=== PATIENT | male | born 1980 ===

== ENCOUNTER → 2019-08-26 09:30 | Day surgery (SDC) | payer OTHER ==
[~2019-08-26 09:30] MED LIST: Acetaminophen TAB* 325 MG PO PRN; Buffered Lidocaine 1% SYRIN* 1 ML/SYRINGE INTRADERM ONE; Dexamethasone IV* 4 MG/ML 1 ML (4 MG) IV SLOW PU ONE; Dexamethasone IV* 4 MG/ML 1 ML (4 MG) ONE; DiMENhydriNATE IV* 50 MG/ML VIAL IV PUSH PRN; HYDROmorphone INJ1* 1 MG/ML SYRINGE IV PRN; Ketorolac INJ* 30 MG/ML 1 ML VIAL IV PRN; Ketorolac INJ* 30 MG/ML 1 ML VIAL ONE; Lactated Ringers 1000 ML Bag* 1,000 ML IV SCH; Lidocaine 1% w EPI 1:100,000* MDV 20 ML VIAL ONE; Lidocaine 2% PF * 5 ML VIAL ONE; Midazolam* 1 MG/ML 2 ML VIAL (2 MG) ONE; Naloxone* 0.4 MG/ML 1 ML VIAL IV PRN; Ondansetron INJ* 2 MG/ML VIAL ONE; Propofol* 10 MG/ML 20 ML BTL ONE; ceFAZolin 2 GM in NS PREMIX(*) 2 GM/100 ML BAG IVPB ONE; fentaNYL* 50 MCG/ML 2 ML VIAL (100 MCG VIAL) IV PRN; fentaNYL* 50 MCG/ML 5 ML VIAL (250 MCG VIAL) ONE; oxyCODONE/Acetamin 5/325 MG* TAB ONE; oxyCODONE/Acetamin 5/325 MG* TAB PO PRN
[2019-08-26 14:37] VITALS: BP 126/84
--- NOTE | 2019-08-27 07:41 | OP ---
DATE OF OPERATION: 08/26/19 - [facility] DATE OF : 78 SURGEON: Leonid Gold MD. VINEGAR MAKER: DULCE MARIA Sy. A physician underwriting assistant was required for the length of procedure for assistance with patient positioning, retraction, and closure. ANESTHESIOLOGIST: Dr. Leonid Valencia. ANESTHESIA: General anesthesia and local anesthesia consisting of 5 cc of 1% lidocaine with epinephrine. PRE-OP DIAGNOSIS: Right distal biceps tendon rupture. POST-OP DIAGNOSIS: Right distal biceps tendon rupture. OPERATIVE PROCEDURE: Open repair of right distal biceps tendon. ANTIBIOTICS: Ancef 2 g IV. IV FLUIDS: See Anesthesia note. PATIENT POSITIONING: Supine on stretcher with hand table. GTME-QE-DEOF TIME: 55 minutes. TOURNIQUET TIME: 59 minutes, right upper arm tourniquet, at 250 mmHg. SPECIMEN: None. IMPLANTS: Arthrex distal biceps tendon repair set. Button x1, metal. Bioabsorbable screw, 7 x 10 mm. COMPLICATIONS: None. 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 I met the patient in clinic, referred by a colleague. I discussed nonoperative and operative treatment of the above-mentioned diagnosis. The patient opted for surgery. I discussed the risks and potential complications of surgery, including but not limited to, the very high incidence of temporary or permanent lateral antebrachial cutaneous nerve symptoms. DESCRIPTION OF PROCEDURE: In preoperative holding, the patient signed written consent. Operative extremity was marked in preoperative holding. The patient was taken back to the operating room and kept on the stretcher. The patient was sedated and intubated. A hand table was applied to the stretcher. Due to the shortness of the patient' s right upper extremity, I decided to use a sterile tourniquet. The right upper extremity was prepped and draped. A sterile tourniquet was applied to the right upper arm. Formal surgical time-out was performed. Esmarch was applied and tourniquet was elevated to 250 mmHg. I made a longitudinal incision, anterior, skin that was centered over the bicipital tuberosity. Later in the case, I measured this skin incision to be 4 cm long. I dissected through subcutaneous tissue. I carefully dissected around the superficial veins and visualized the lateral antebrachial cutaneous nerve. I did not require the use of cautery nor did I need to tie off any vessels during this case. I retracted vessels radially. I dissected into the interval between the brachioradialis and the pronator teres. I noted some significant inflammation and scarring along the pronator teres and decided to first work on freeing up the biceps tendon. Retractors were placed. Using mostly finger dissection as well as some spreading scissor dissection, I identified the biceps tendon. I placed a traction stitch and freed up adhesions that had certainly formed in the 3 weeks since his injury. I mobilized the biceps tendon nicely. The distal end of the biceps tendon was significantly diseased and I resected 1 cm or perhaps 1.5 cm of diseased tendon. I then used the FiberLoop suture to place 4 stitches in the distal biceps tendon. I loaded the biceps button and placed that to the side. I dissected down to the bicipital tuberosity. With the forearm hyper-supinated , I placed my retractors, Castaneda, about the bone. [place] was placed distally. I debrided the bicipital tuberosity with a curette and rongeur. I placed a pin bicortically. I used mini C-arm imaging to confirm excellent placement of pin. I used a 7.5 mm reamer to ream unicortically. I irrigated profusely and examined my tunnel and I liked its depth. I passed my button and flipped it. Flexing the elbow up to 30 or 40 degrees of flexion, I pulled the biceps tendon into the socket. A long length of tendon was pulled into the socket and I liked that. I next tied a stitch using an arthroscopic knot pusher. I next placed my tenodesis screw and then tied another knot with the suture per technique. I cut suture ends. Irrigation. I studied the wound. No bleeding. Closure of the subcutaneous tissue with buried simple stitches using Vicryl 3-0 suture. Closure of the subcuticular layer with a running stitch using Monocryl 3-0 suture. Mastisol and Steri-Strips, local anesthesia 5 cc placed, 4x4s and sterile Webril. I next placed a splint consisting of a posterior slab followed by a sugar-tong forearm slab and overwrapping it with an Martin bandage. The patient was awakened, extubated, and transferred to the PACU. The patient was placed in a sling. DISPOSITION: In the PACU, the patient was groggy, but I was able to get him to show that with regards to motor function, he was neurovascularly intact distally. The patient is to remain in the splint. He will follow up with me in clinic in 1 week for conversion from the splint to an elbow-hinged brace. The patient will take Percocet as needed for pain control, Keflex for infection prophylaxis, and indomethacin for heterotopic ossification prophylaxis. The patient will also start physical therapy after he is placed into the brace, with physical therapy beginning approximately 2 to 3 weeks postoperatively. [id number]/[facility] #: [id number] ALINE
== END | disposition home or self-care (01) ==
LOC: OR 09:30
PROVIDERS: ATTEND Orthopaedic Surgery
DX: S46.211A Strain of muscle, fascia and tendon of other parts of biceps, right arm, initial encounter (principal); J45.909 Unspecified asthma, uncomplicated; X50.0XXA Overexertion from strenuous movement or load, initial encounter; Y93.67 Activity, basketball; Y92.310 Basketball court as the place of occurrence of the external cause
CPT/HCPCS: 76000; A9270-GY; C1713; J0690; J1100; J1885; J2250; J2405; J2704; J3010

== ENCOUNTER 2019-11-04 07:32 | Observation (INO) | payer OTHER ==
--- OUTSIDE RECORDS SUMMARY | 2019-11-04 07:48 | XMS REPORT | Continuity of Care Document ---
:1980 External Reference #:[id number] Author Name Leonid Gold MD (transmitted by agent of provider Wagner Waters) Address [address] [place] [id number] Care Team Providers Name Role Phone Laci White NP - Family Care Team Information Education Professional [phone] Problems Active Problems Provider Date Syncope and collapse Ubaldo Solomon M.D. Onset: 08/26/2013 Strain of muscle, fascia and tendon of other Leonid Gold MD Onset: parts of biceps, right arm, subsequent encounter Social History Type Date Description Comments Sex Unknown ETOH Use Occasionally consumes 3 per week (beer, alcohol wine) Tobacco Use Start: Unknown Patient has never smoked Recreational Drug Use Denies Drug Use Smoking Status Reviewed: 10/08/19 Patient has never smoked Exercise Type/Frequency Exercises regularly 5 days a week, walking, running at work (stairs, walking) Allergies, Adverse Reactions, Alerts Description No Known Drug Allergies Medications Active Medications SIG Qnty Indications Ordering Provider Date R Elbow Hinged Brace r elbow hinged 1units S46.111D Leonid Salamanca 08/18/2019 brace- start it MD Asif locked at 90 degrees of flexion Albuterol Sulfate prn Unknown 90mcg Flovent HFA bid Unknown Fish Oil Concentrate 1 po qd Unknown Multivitamin Adult 1 by mouth every Unknown day Tablets History Medications Indomethacin 1 tab three 21caps Leonid Salamanca 08/26/2019 - 25mg times a day x 7 MD Asif 09/16/2019 Capsules days Percocet 1 by mouth 42tabs S46.111D Leonid Salamanca 08/26/2019 - 5-325mg every 4-6 hours MD Asif 09/16/2019 Tablets as needed pain Keflex take 1 tablet 15caps Leonid Salamanca 08/26/2019 - 500mg Capsules by mouth every MD Asif 09/16/2019 8 hours for 5 days Immunizations Description No Information Available Vital Signs Date Vital Result Comment 10/08/2019 1:05pm Height 68 inches 5'8" Weight 160.00 lb Heart Rate 77 /min BP Systolic 124 mmHg BP Diastolic 78 mmHg Body Temperature 97.7 F Pain Level 0 BMI (Body Mass Index) 24.3 kg/m2 09/17/2019 8:12am Height 68 inches 5'8" Weight 160.00 lb Heart Rate 70 /min BP Systolic 124 mmHg BP Diastolic 76 mmHg Respiratory Rate 12 /min Pain Level 0 BMI (Body Mass Index) 24.3 kg/m2 Results Description No Information Available Procedures Date Code Description Status 08/26/2019 27117 reinsertion ruptured biceps or triceps tendon,distal with Completed or w/o 08/26/2019 73269 reinsertion ruptured biceps or triceps tendon,distal with Completed or w/o Medical Devices Description No Information Available Encounters Type Date Location Provider Dx Diagnosis Office Visit 08/18/2019 [facility] Leonid Salamanca S46.211D Strain of 8:00a at [facility] Gold MD musc/fasc/tend prt biceps, right arm, subs Office Visit 08/10/2019 [facility] Gabrielasamantha Correia, M25.521 Pain in right 3:00p at Jamey M.DRichard elbow S46.101A Unsp injury of musc/fasc/tend long hd bicep, right arm, init Y93.67 Activity, basketball Assessments Date Code Description Provider 10/08/2019 S46.211D Strain of muscle, fascia and tendon of Leonid Gold MD other parts of biceps, right arm, subsequent encounter 09/17/2019 S46.211D Strain of muscle, fascia and tendon of Leonid Gold MD other parts of biceps, right arm, subsequent encounter 09/03/2019 S46.211A Strain of muscle, fascia and tendon of Leonid Gold MD other parts of biceps, right arm, initial encounter 08/26/2019 S46.211A Strain of muscle, fascia and tendon of Leonid Gold MD other parts of biceps, right arm, initial encounter 08/26/2019 S46.211A Strain of muscle, fascia and tendon of DULCE MARIA Sy other parts of biceps, right arm, initial encounter 08/18/2019 S46.211D Strain of muscle, fascia and tendon of Leonid Gold MD other parts of biceps, right arm, subsequent encounter 08/10/2019 M25.521 Pain in right elbow Gabriela Correia M.D. 08/10/2019 S46.101A Unspecified injury of muscle, fascia and Gabriela Correia M.D. tendon of long head of biceps, right arm, initial encounter 08/10/2019 Y93.67 Activity, basketball Gabriela Correia M.D. Plan of Treatment Future Appointment(s):11/19/2019 8:00 am - Leonid Gold MD at [facility] at Kdzmxf5910/08/2019 - Leonid Gold, MDS46.211D Strain of muscle, fascia and tendon of other parts of biceps, right arm, subsequent encounterFollow up:Follow up: 6 weeks Functional Status Description No Information Available Mental Status Description No Information Available Referrals Description No Information Available
--- OUTSIDE RECORDS SUMMARY | 2019-11-04 07:48 | XMS REPORT | Continuity of Care Document ---
:1980 External Reference #:[id number] Author Name Leonid Gold MD (transmitted by agent of provider Barbara Gordillo) Address [address] [place] [id number] Care Team Providers Name Role Phone Laci White NP - Family Care Team Information Oil Burner Repairer [phone] Problems Active Problems Provider Date Syncope and [...] Use Denies Drug Use Smoking Status Reviewed: 09/17/19 Patient has never smoked Exercise Type/Frequency Exercises [...] Available Vital Signs Date Vital Result Comment 09/17/2019 8:12am Height 68 inches 5'8" Weight 160.00 lb Heart Rate 70 /min BP Systolic 124 mmHg BP Diastolic 76 mmHg Respiratory Rate 12 /min Pain Level 0 BMI (Body Mass Index) 24.3 kg/m2 09/03/2019 10:22am Height 68 inches 5'8" Weight 160.00 lb Heart Rate 56 /min BP Systolic 142 mmHg BP Diastolic 92 mmHg Respiratory Rate 16 /min Body Temperature 97.1 F Pain Level 0 BMI (Body Mass Index) 24.3 kg/m2 Results Description No Information Available Procedures Date Code Description Status 08/26/2019 62081 reinsertion ruptured biceps or triceps tendon,distal with Completed or w/o 08/26/2019 72090 reinsertion ruptured biceps or triceps tendon,distal with Completed or w/o Medical Devices Description No Information Available Encounters Type Date Location Provider Dx Diagnosis Office Visit 08/18/2019 [facility] Leonid Saalmanca S46.211D Strain of 8:00a at J[facility] Gold MD musc/fasc/tend prt biceps, right arm, subs Office Visit 08/10/2019 [facility] Gabriela Masood, M25.521 Pain in right 3:00p at [facility] .DRichard elbow S46.101A Unsp injury of musc/fasc/tend long hd bicep, right arm, init Y93.67 Activity, basketball Assessments Date Code Description Provider 09/17/2019 S46.211D Strain of muscle, fascia and [...] Gabriela Correia M.D. Plan of Treatment Future Appointment(s):10/08/2019 1:15 pm - Leonid Gold MD at [facility] at [facility]/17/2019 - Leonid Gold, MDS46.211D Strain of muscle, fascia and tendon of other parts of biceps, right arm, subsequent encounterFollow up:Follow up: 3 weeks full flexion to 30 extension Functional Status Description No Information Available Mental Status Description No Information Available Referrals Description No Information Available
--- NOTE | 2019-11-04 08:18 | ED ---
Palpitations / Dysrhythmia - HPI Summary HPI Summary: Patient is 39 y/o M presenting to the ED for a chief complaint of palpitations. Patient states that he was at the gym exercising around 06:00 on 11/04/19 when he began to feel palpitations and an irregular rhythm. He went home and had his partner check his heart rate, and his partner agreed he had an irregular heart rate. He also notes dizziness. Patient denies chest pain or shortness of breath. Any aggravating or alleviating factors are denied. PMHx is significant for syncope for which he had a cardiac workup with Dr. Ubaldo Solomon. Patient states his syncopal episodes were both at rest and with exertion. 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 He denies receiving chemotherapy for the tumor. Any significant FMHx is denied. Patient denies any alcohol, tobacco, or drug use. - History of Current Complaint Chief Complaint: EDDysrhythmPalp Time Seen by Provider: 11/04/19 07:46 Hx Obtained From: Patient Onset/Duration: Sudden Onset, Lasting Minutes, Still Present Timing: Constant Severity Initially: Moderate Severity Currently: Moderate Character: Fast, Irregular Aggravating: Nothing Alleviating: Nothing Associated Signs & Symptoms: Dizzy - Allergy/Home Medications Allergies/Adverse Reactions: Allergies Allergy/AdvReac Type Severity Reaction Status Date / Time No Known Allergies Allergy Verified 11/04/19 07:42 PMH/Surg Hx/FS Hx/Imm Hx Previously Healthy: Yes Endocrine/Hematology History: Reports: Hx Thyroid Disease - RIGHT THYROIDECTOMY Denies: Hx Diabetes Cardiovascular History: Denies: Hx Congestive Heart Failure, Hx Hypercholesterolemia, Hx Hypertension , Hx Pacemaker/ICD, Hx Peripheral Vascular Disease, Hx Syncope - NEW DX NEAR SYNCOPE 07/21/13, Other Cardiovascular Problems/Disorders Respiratory History: Reports: Hx Asthma - PRN INHALER, Hx Seasonal Allergies - ON ZYRTEC Denies: Other Respiratory Problems/Disorders GI History: Denies: Other GI Disorders History: Denies: Other Problems/Disorders Musculoskeletal History: Reports: Hx Back Problems - BACK PAIN & TX WITH PHYSICAL THERAPY 11/2012, Other Musculoskeletal History - RUPTURED RIGHT BICEPS Denies: Hx Arthritis, Hx Osteoporosis, Hx Scoliosis Sensory History: Reports: Hx Contacts or Glasses - INSTRUCTS GIVEN Denies: Hx Cataracts, Hx Glaucoma, Hx Legally Blind, Hx Deafness, Hx Hearing Aid Opthamlomology History: Reports: Hx Contacts or Glasses - INSTRUCTS GIVEN Denies: Hx Cataracts, Hx Glaucoma, Hx Legally Blind EENT History: Denies: Hx Deafness Neurological History: Reports: Other Neuro Impairments/Disorders - Syncope Denies: Hx Headaches Psychiatric History: Denies: Hx Anxiety, Hx Depression, Hx Panic Disorder - Surgical History Surgical History: Yes Surgery Procedure, Year, and Place: RIGHT [id number] BENIGN Hx Anesthesia Reactions: No Infectious Disease History: No Infectious Disease History: Denies: Traveled Outside the [place] in Last 30 Days - Family History Known Family History: Negative: Cardiac Disease, Hypertension, Diabetes - Social History Occupation: Employed Full-time Lives: With Family Alcohol Use: Occasionally Hx Substance Use: No Substance Use Type: Reports: None Hx Tobacco Use: No Smoking Status (MU): Never Smoked Tobacco Have You Smoked in the Last Year: No Review of Systems Positive: Palpitations, Other - Positive irregular rhythm. Negative: Chest Pain Negative: Shortness Of Breath Neurological: Other - Positive dizziness All Other Systems Reviewed And Are Negative: Yes Physical Exam - Summary Physical Exam Summary: VITAL SIGNS: Reviewed. GENERAL: Patient is a well-developed and nourished MALE who is lying comfortable in the stretcher. Patient is not in any acute respiratory distress. HEAD AND FACE: No signs of trauma. No ecchymosis, hematomas or skull depressions. No sinus tenderness.. EYES: PERRLA, EOMI x 2, No injected conjunctiva, no nystagmus. EARS: Hearing grossly intact. Ear canals and tympanic membranes are within normal limits. MOUTH: Oropharynx within normal limits. NECK: Supple, trachea is midline, no adenopathy, no JVD, no carotid bruit, no c- spine tenderness, neck with full ROM. CHEST: Symmetric, no tenderness at palpation. LUNGS: Clear to auscultation bilaterally. No wheezing or crackles. CVS: Irregular rate and rhythm, S1 and S2 present, no murmurs or gallops appreciated. ABDOMEN: Soft, non-tender. No signs of distention. No rebound, no guarding, and no masses palpated. Bowel sounds are normal. EXTREMITIES: FROM in all major joints, no edema, no cyanosis or clubbing. NEURO: Alert and oriented x 3. No acute neurological deficits. Speech is normal and follows commands. SKIN: Dry and warm. Triage Information Reviewed: Yes Vital Signs On Initial Exam: Initial Vitals Temp Pulse Resp BP Pulse Ox 97.5 F 83 16 120/83 99 11/04/19 07:39 11/04/19 07:39 11/04/19 07:39 11/04/19 07:39 11/04/19 07:39 Vital Signs Reviewed: Yes Procedures - Sedation Patient Received Moderate/Deep Sedation with Procedure: No Diagnostics - Vital Signs Vital Signs Temp Pulse Resp BP Pulse Ox 11/04/19 07:39 97.5 F 83 16 120/83 99 - Laboratory Result Diagrams: 11/04/19 08:00 11/04/19 08:00 Lab Statement: Any lab studies that have been ordered have been reviewed, and results considered in the medical decision making process. - Radiology Chest X-ray Radiology Interpretation Completed By: Radiologist Summary of Radiographic Findings: Chest X-ray IMPRESSION: No acute cardiopulmonary process. Reviewed by Dr. Jimenez. - EKG 07:53 Cardiac Rate: Other Rate - 107 BPM EKG Rhythm: Atrial Fibrillation ST Segment: Normal Ectopy: None Summary of EKG Findings: EKG at 07:53 shows atrial fibrillation with 107 BPM, no ST elevations, no STEMI. Reviewed and interpreted by Dr. Jimenez. Course/Dx - Course Assessment/Plan: Patient is 39 y/o M presenting to the ED for a chief complaint of palpitations. Patient states that he was at the gym exercising around 06:00 on 11/04/19 when he began to feel palpitations and an irregular rhythm. He went home and had his partner check his heart rate, and his partner agreed he had an irregular heart rate. He also notes dizziness. Patient denies chest pain or shortness of breath. Any aggravating or alleviating factors are denied. PMHx is significant for syncope for which he had a cardiac workup with Dr. Ubaldo Solomon. Patient states his syncopal episodes were both at rest and with exertion. PSHx is significant for partial thyroidectomy for benign thyroid tumor. He denies receiving chemotherapy for the tumor. Any significant FMHx is denied. Patient denies any alcohol, tobacco, or drug use. Blood work without any significant abnormality. Chest x-ray shows no acute pathology. EKG shows atrial fibrillation with RVR at 107 bpm. In the ED course the patient was given IV fluids. I discussed the case with Dr. Montano from cardiology who recommends the patient be admitted, given anticoagulants, and PIETRO. I also discussed the case with Dr. Pemberton from the hospitalist services who accepted the patient for admission. - Diagnoses Differential Diagnosis/HQI/PQRI: Positive: Hypokalemia, Hypoxia, Paroxymal SVT, V-Tach Provider Diagnoses: Atrial fibrillation and flutter - Physician Notifications Discussed Care Of Patient With: Aviva Montano - At 09:13, patients case was reviewed by Dr. Montano who [place] [facility]. At 09:26, Dr. Petra Pemberton agrees to admit the [place] [facility] Time Discussed With Above Provider: 09:13 Instructed by Provider To: Admit As Inpatient Discharge ED - Sign-Out/Discharge Documenting (check all that apply): Patient Departure - Admit - Discharge Plan Condition: Stable Disposition: ADMITTED TO [facility] - Billing Disposition and Condition Condition: STABLE Disposition: Admitted to [facility] - Attestation Statements Document Initiated by Laliibe: Yes Documenting Scribe: Autumn Land Provider For Whom Frederick is Documenting (Include Credential): Jose L Jimenez MD Scribe Attestation: I, Autumn Land, scribed for Jose L Jimenez MD on 11/04/19 at 1834. Scribe Documentation Reviewed: Yes Provider Attestation: The documentation as recorded by the Autumn olivera accurately reflects the service I personally performed and the decisions made by me, Jose L Jimenez MD Status of Scribe Document: Viewed
[2019-11-04 08:37] LABS: ABS Basophils 0.1 10^3/ul (0-0.2); ABS Eosinophils 0.2 10^3/ul (0-0.6); ABS Lymphocytes 1.6 10^3/ul (1.0-4.8); ABS Monocytes 0.7 10^3/ul (0-0.8); ABS Neutrophils 3.9 10^3/ul (1.5-7.7); Eosinophil % 3.1 %; Hematocrit 46 % (42-52); Lymphocyte % 25.4 %; Mean Corpuscular HGB Conc 35 g/dL (31-36); Mean Corpuscular Hemoglobin 31 pg (27-31); Mean Corpuscular Volume 88 fL (80-94); Mean Platelet Volume 9.1 fL (7.4-10.4); Platelet Count 225 10^3/uL (150-450); Red Blood Count 5.24 10^6 /uL (4.18-5.48); Red Cell Distribution Width 13 % (10-15); White Blood Count 6.4 10^3/uL (3.5-10.8)
[2019-11-04 08:37] LABS: Urine Appearance Clear; Urine Bilirubin Negative (Negative); Urine Blood Negative (Negative); Urine Color Straw; Urine Glucose Negative (Negative); Urine Ketones Negative (Negative); Urine Nitrite Negative (Negative); Urine Protein Negative (Negative); Urine Specific Gravity 1.005 (1.010-1.030); Urine Urobilinogen Negative (Negative)
[2019-11-04 08:49] LABS: Albumin 4.6 g/dL (3.2-5.2); Albumin/Globulin Ratio 1.5 (1-3); BUN/Creatinine Ratio 15.4 (8-20); Calcium 10.1 mg/dL (8.6-10.3); EGFR African American 83.5 (>60); Magnesium 1.9 mg/dL (1.9-2.7); Potassium 4.1 mmol/L (3.5-5.0); Total Bilirubin 0.5 mg/dL (0.2-1.0); Total Protein 7.6 g/dL (6.4-8.9); Troponin I 0.01 ng/mL (<0.03)
[2019-11-04] MEDS ORDERED: NS 0.9% 1000 ML** 1,000 ML IV ONE (09:05)
[2019-11-04 09:07] LABS: TSH (Thyroid Stimulating Horm) 4.16 mcIU/mL (0.34-5.60)
[2019-11-04] MEDS ORDERED: NS 0.9% 1000 ML** 1,000 ML IV SCH (10:30)
[2019-11-04] MEDS ORDERED: Albuterol HFA INHALER* 8 gm MDI INH PRN (10:42)
--- NOTE | 2019-11-04 11:55 | HP ---
CC: Laci White NP * HISTORY AND PHYSICAL: DATE OF ADMISSION: 11/04/19 PRIMARY CARE PROVIDER: Laci White NP CHIEF COMPLAINT: Irregular heart rate. HISTORY OF PRESENT ILLNESS: Mr. Schroeder is a 39-year-old healthy male with history of asthma who had been in his usual state of health on the morning of admission when he woke up. He went to the gym and was working out. In the middle of his workout at approximately 6 a.m., he began to feel his heart rate was racing and pounding in his chest. He took a short break and noticed that the heart rate did settle down some. He was able to finish his workout. He got home and asked his to check his pulse and was found to be irregular and fast. He laid down on the couch for about 15 minutes or so and despite this the heart rate remained rapid and he continued to feel pounding in his chest. He almost feels as if there is a jarring sensation. He has never been diagnosed with atrial fibrillation in the past. He does state that he has had periods of what he thought was anxiety and would feel this way; however, it would go away on its own. He did not binge drink last evening. He has had episodes of syncope in the past as well with a full workup that were negative. The patient denies any chest pain. He does feel a fullness in his neck. He also feels mild shortness of breath with talking. PAST MEDICAL HISTORY: 1. Benign thyroid tumor, status post resection. 2. Asthma. PAST SURGICAL HISTORY: 1. Biceps tendon repair, July 2019. 2. Partial thyroidectomy 1999. MEDICATIONS: Albuterol 2 puffs inhaled q.4 hours p.r.n. shortness of breath. ALLERGIES: No known drug allergies. FAMILY HISTORY: Dad has a history of AFib and prostate cancer. Mom has a history of SVT and uterine cancer. SOCIAL HISTORY: The patient is a nonsmoker. He drinks alcohol on occasion. 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 He is , but currently in a long-term relationship. He has 4 children. REVIEW OF SYSTEMS: A complete 11-system review of systems was obtained. Pertinent positives and negatives are as per HPI. In addition, the patient denies any recent long distance travel. PHYSICAL EXAMINATION GENERAL: The patient is a well-developed, young, thin male seen sitting up in the stretcher, appearing to be in no acute distress. VITAL SIGNS: Blood pressure 120/83, pulse 83, respirations 16, temp 97.5, O2 sat 99% on room air. HEENT: Pupils are equal and round. Extraocular muscles are intact. Oropharynx is clear. There is no submandibular, cervical or supraclavicular adenopathy. PULMONARY: Lungs are clear to auscultation bilaterally. CARDIAC: Normal S1, S2. Heart rate is irregularly irregular and mildly tachycardic. There are no murmurs. There is no lower extremity edema. ABDOMEN: Bowel sounds present. Abdomen is soft, nontender, nondistended. MUSCULOSKELETAL: There is no cyanosis or clubbing of the digits. There is full active range of motion of all 4 extremities. SKIN: Visible areas of skin are warm, dry and without rash. NEUROLOGIC: Cranial nerves are II through XII are grossly intact. Sensation is intact to light touch throughout. Strength is 5/5 and symmetric in both upper and lower extremities bilaterally. PSYCH: The patient is alert. He is oriented x3. Affect appears appropriate. DIAGNOSTIC STUDIES/LAB DATA: WBC 6.4, hemoglobin 16.0, hematocrit 46, platelets 225. Sodium 139, potassium 4.1, chloride 103, CO2 of 28, BUN 18, creatinine 1.17, glucose 96, calcium 10.1, magnesium 1.9, bilirubin 0.5. AST 22 , ALT 18, alk phos 78, CPK 111. Troponin 0.01. BNP 18. Albumin 4.6. TSH 4.16. Urinalysis reveals a specific gravity of 1.005 and otherwise negative for signs of infection. EKG reveals atrial fibrillation with mild rapid ventricular response. Chest x-ray: No acute cardiopulmonary process ASSESSMENT AND PLAN: Mr. Schroeder is a 39-year-old healthy male who presented to the emergency room after developing sudden onset of racing and irregular heart rate at approximately 6 a.m. on the day of admission and is found to be in atrial fibrillation with mild rapid ventricular response. 1. Atrial fibrillation with rapid ventricular response. The patient's heart rate is only mildly elevated, though does become increased when talking about stressful situation or with movement. Dr. Montano has been consulted and has recommended transesophageal echocardiogram-guided cardioversion. I do believe this can be performed today. The order has been placed. The patient will need 1 month of anticoagulation following his cardioversion. It is unclear why he developed atrial fibrillation, though there is a suspicion that perhaps he has been in and out of this in the past. 2. Asthma. No complaints of shortness of breath at this time. We will continue p.r.n. albuterol. 3. DVT prophylaxis. According to the Adult Thrombosis Prophylaxis Risk Factor Assessment guide, the patient has a total risk factor score of 0, making him low risk. Ambulation will be utilized as DVT prophylaxis. 4. Code status is full. TIME SPENT: Forty-five minutes was spent admitting this patient. [id number]/[facility] #: [id number] ALINE
[2019-11-04] MEDS ORDERED: Midazolam* 1 MG/ML 5 ML VIAL (5 MG) ONE (14:27)
[2019-11-04] MEDS ORDERED: fentaNYL* 50 MCG/ML 2 ML VIAL (100 MCG VIAL) ONE (14:27)
[2019-11-04] MEDS ORDERED: Flumazenil* 0.1 MG/ML 5 ML MDV ONE (14:28)
[2019-11-04] MEDS ORDERED: Naloxone* 0.4 MG/ML 1 ML VIAL ONE (14:28)
[2019-11-04] MEDS ORDERED: Lidocaine 2% VISCOUS* 15 ML UDC ONE (14:28)
[2019-11-04 16:37] VITALS: BP 125/76
--- NOTE | 2019-11-04 17:54 | TEE ---
*[facility]* [place] [address] Fax #: [phone] Transesophageal Echocardiogram Patient: Steve Schroeder : 1980 Study Date: 11/04/2019 Age: 39 Gender: M HR: 154 bpm Height: 68 in /172.7 cm BSA: 1.86 m^2 Weight: 159.7 lb /72.6 kg BMI: 24.3 kg/m^2 *Manager Credit Collections: Autumn Jackson [facility] *Referring Physician: * Petra Pemberton *Reading Physician: * Aviva Montano MD Indications: Atrial Fibrillation. History: Syncope. Conclusions Summary: - Left ventricle: Systolic function is vigorous. The estimated ejection fraction is 60-65%. - Right ventricle: Systolic function is normal. - Left atrium: There is no evidence of a thrombus in the atrial cavity or appendage. - Mitral valve: There is trace regurgitation. - Tricuspid valve: There is trace regurgitation. - No prior echocardiogram to compare. Study data: Diagnostic Transesophageal Echocardiogram Consent: The risks and benefits of the procedure, including alternatives were discussed with the patient and/or their health care area representative and written informed consent was obtained. Procedure: Initial setup: The patient was brought to the laboratory in the fasting state.Intravenous access was obtained. Surface ECG leads, heart rate, heart rhythm, blood pressure measurements, pulse oximetric signals, and mainstream end-tidal CO2 tracings were monitored throughout the procedure. Sedation. Moderate sedation was administered by nursing staff. History and physical as well as labs were reviewed. An oral bite block was inserted for protection of oral dentition. The patient was placed in the left lateral decubitus position. Topical anesthesia was obtained using viscous lidocaine. A transesophageal probe was inserted by the attending figure model. Transesophageal echocardiography was performed, image quality was good, and all standard views were attempted within the limitations of patient tolerance and safety. Multiple 2D, color flow Doppler and spectral Doppler images were obtained. The transesophageal probe was removed. There was no blood loss.No tubes, implants, or drains. A bubble study was performed. Location: Procedure room. Patient status: Inpatient. Patient room number: 431. Study completion: The patient tolerated the procedure well. There were no complications. Administered medications: Midazolam, 7mg. Fentanyl, 75mcg. Rhythm: Atrial fibrillation. Findings Left ventricle: The cavity size is normal. Systolic function is vigorous. The estimated ejection fraction is 60-65%. Wall motion is normal; there are no regional wall motion abnormalities. Left ventricular diastolic function parameters are indeterminate. Right ventricle: The cavity size is normal. Systolic function is normal. Left atrium: The atrium is normal in size. Emptying velocity is normal. There is no evidence of a thrombus in the atrial cavity or appendage. Right atrium: The atrium is normal in size. Atrial septum: A PFO is not demonstrated by color Doppler or agitated saline contrast. Negative bubble study. Mitral valve: The leaflets are normal thickness. There is no evidence of stenosis. There is trace regurgitation. Aortic valve: The valve is trileaflet. The leaflets are normal thickness. There is no evidence of stenosis. There is no significant regurgitation. Tricuspid valve: The leaflets are normal thickness. There is no evidence of stenosis. There is trace regurgitation. Pulmonic valve: The leaflets are normal thickness. There is no evidence of stenosis. There is trace regurgitation. Aorta: The aortic root appears normal. The aortic arch appears normal. The ascending aorta appears normal. Pericardium: There is no significant pericardial effusion. Pulmonary arteries: The main pulmonary artery is normal-sized. Systemic veins: Inferior vena cava: The vessel is normal in size. Superior vena cava: The vessel is appears normal. Pulmonary veins: The flow of the pulmonary veins appears normal. Measurements Aortic valve Value Ref Aortic root Value Ref [place] diam, ED 2.5 cm ---- Root diam 3.4 cm <4.0 Mitral valve Value Ref Ascending aorta Value Ref Peak E 0.56 m/sec ---- AAo AP diam, S 3.1 cm ---- Decel time 80 ms ---- Legend: (L) and (H) nolan values outside specified reference range. Prepared and electronically signed by Aviva Montano MD 11/04/2019 17:53
[2019-11-04] MEDS ORDERED: Apixaban* 5 MG TAB PO ONE (18:03)
[2019-11-04] MEDS ORDERED: Rivaroxaban TAB(*) 20 MG TAB PO SCH (19:00)
--- NOTE | 2019-11-04 19:39 | CONS ---
CC: Laci White NP; Dr. Ubaldo Solomon * CARDIOLOGY CONSULTATION: DATE OF CONSULT: 11/04/19 REASON FOR CONSULT: Atrial fibrillation with rapid ventricular rate. CHIEF COMPLAINT: Palpitations, racing of the heart, and some exercise intolerance. HISTORY OF PRESENT ILLNESS: Mr. Schroeder is a 39-year-old gentleman with no previously diagnosed history of AFib. He has had a history of syncope and has undergone evaluation with Dr. Solomon in the past. The patient woke up in his usual state of health early, had a cup of coffee, went to the gym at about 6 in the morning and initially his workout was normal but during the workup, he acutely developed rapid and pounding heartbeat, it did not clear with rest. He worked out again but his symptoms persisted when he got home and his who works as a nurse podiatrist assistant in ICU and cardiac services checked his pulse and found it rapid and irregular. In the emergency room, he was noted to have AFib/flutter with rapid ventricular rate. The patient did not have any alcohol the night before. He denies apnea symptoms , his states rare snoring. No history of apnea. The patient has had fluttering sensations that have been briefer occasionally in the past, these did not correlate with the syncopal episodes in the past. PAST MEDICAL HISTORY: The patient has past medical history of: 1. Thyroid tumor, benign, status post resection. 2. Asthma. 3. Biceps tendon repair, status post repair in July 2019. PAST SURGICAL HISTORY: Additionally shows partial thyroidectomy in 1999. OUTPATIENT MEDICATIONS: Include albuterol p.r.n. ALLERGIES: He has no known drug allergies. SOCIAL HISTORY: The patient is a physical therapist, works at [employer]. Nonsmoker. Occasional alcohol. FAMILY HISTORY: Father has a history of AFib and prostate cancer. Mother has a history of supraventricular tachycardia and uterine cancer. REVIEW OF SYSTEMS: Negative for orthopnea, PND, any recent palpitation. No chest pain. Except for this morning, no exercise intolerance. No recreational drug use. He did take nonsteroidals and antibiotics at the time of his orthopedic surgery but none recently. All other 14-point review of systems was negative. PHYSICAL EXAMINATION: The patient is 5 feet 8 inches, weighs 160 pounds with a BMI of 24.4. Vitals: Blood pressure 120/83; pulse is 80 to 120, irregularly irregular; oxygen saturation 99% on room air. He is afebrile. General Appearance: Lean, fit-appearing middle-aged male, in no acute distress. Psychologically pleasant and cooperative. Neurologically, awake, alert, oriented to person, place, and time. Cranial nerves are II through XII intact. Grossly normal sensory and motor function of the upper and lower extremities on bed exam. Skin: Warm, dry. No cyanosis or rashes. HEENT: Mucous membranes moist. Tongue midline. Neck: Without increased JVP appreciated. Strong carotid pulses. Lungs: Clear with good effort. No wheezes, rales, or rhonchi. Coronary: S1, S2, irregularly irregular. Tachycardic. No murmurs. Abdomen: Flat, active bowel sounds, soft. No hepatomegaly. Lower Extremities : Free of edema with palpable posterior tibial pulses. DIAGNOSTIC STUDIES/LAB DATA: A 12-lead ECG today shows atrial fibrillation with ventricular rate of 107 beats a minute. QRS axis -30, normal intraventricular conduction times and normal STs compared with EKG in the system from 07/21/13 AFib replaces normal sinus rhythm at 51 beats a minute. PIETRO results showed normal ventricular function, trace valvular insufficiency on preliminary report. No clot in the left atrial appendage. Chest x-ray report done today showed no acute pulmonary disease. Lungs clear. Labs: White count 6.4, hematocrit 46, platelets 225. Sodium 139, potassium 4.1 , chloride 103, bicarb 28, BUN 18, creatinine 1.2, glucose 96. Normal transaminases. Troponin 0.01. BNP of 18. TSH 4.16. Urinalysis unremarkable with specific gravity of 1.005. IMPRESSION: In summary, Steve Schroeder is a 39-year-old male who presented with atrial fibrillation with rapid ventricular rate by history occurred with exercise early this morning following a cup of coffee. The history is consistent with acute onset with exercise, the differential of being in a longer period of time with awareness during a higher amount of activity. After discussion, we elected to proceed with transesophageal echo- guided cardioversion, this was successful. Currently, we will plan on having him avoid alcohol, caffeine at this point, but it is unclear what really precipitated this. It sounds like his workups are high intensity, so I discussed lowering the intensity of his workout, perhaps lowering weights and ensuring well hydrated with good electrolyte replacement. I do not appreciate history of sleep apnea, asthma and asthma meds might contribute in the residential, but I do not see there is any acute pulmonary issues that would precipitate this. There is no evidence of delayed sinus node recovery time that would account for any correlation with his prior syncopal episode. Although, his CHADS-VASc score is low and he technically does not need anticoagulants, there is an option to be on the safe side on NOAC for 1 month and have him follow up with Dr. Solomon in the next 1 to 3 weeks. Thank you for allowing me to assist in this nice young man's care. [id number]/[facility] #: [id number] ALINE
--- NOTE | 2019-11-04 20:55 | CARD ---
CC: Dr. Solomon; Dr. Mckinley * ELECTRICAL CARDIOVERSION REPORT: DATE OF PROCEDURE: 11/04/19 - ROOM #431 PRIMARY CARE PHYSICIAN: Dr. Mckinley. PROCEDURE: Electrical cardioversion. PRE-PROCEDURE DIAGNOSIS: Atrial fibrillation with rapid ventricular rate. POST-PROCEDURE DIAGNOSIS: Atrial fibrillation with rapid ventricular rate. The indications, risks, and benefits of the transesophageal echocardiogram and cardioversion were discussed with the patient as well as his mother and , and all were understanding and amenable to proceeding. DESCRIPTION OF PROCEDURE: The patient had AP patches placed across the chest wall. He then received throughout both procedures a total of 10 mg of Versed and 100 mcg of fentanyl. The patient's transesophageal echocardiogram that had been done prior showed no evidence of thrombus in the left atrial appendage and was otherwise unremarkable as well. Using AP patches, 120 joules was synchronously delivered across the chest wall with successful cardioversion. CONCLUSION: Successful cardioversion from atrial fibrillation to normal sinus rhythm. Hemodynamically stable throughout the procedure and in recovery. Currently, he is in sinus rhythm with a rate of 84 beats a minute and blood pressure 111/77. [id number]/[facility] #: [id number] [facility]
--- NOTE | 2019-11-04 23:01 | DS ---
CC: Laci White NP; Dr. Ubaldo Solomon * DISCHARGE SUMMARY: DATE OF ADMISSION: 11/04/19 DATE OF DISCHARGE: 11/04/19 PRIMARY CARE PROVIDER: Laci White NP. [employer] SEPARATOR OPERATOR: Dr. Solomon. PRINCIPAL DIAGNOSIS: Atrial fibrillation with rapid ventricular response. SECONDARY DIAGNOSIS: Asthma. DISCHARGE MEDICATIONS: 1. Eliquis 5 mg p.o. b.i.d. x30 days (new). 2. Albuterol 2 puffs inhaled q.4 hours p.r.n. shortness of breath. HOSPITAL COURSE: Mr. Schroeder is a 39-year-old male who had been in his usual state of health while exercising on the morning of admission when he suddenly felt his heart pounding in his chest. He ultimately was able to finish his workout in the home. When his heart continued to pound and feel abnormal, he presented to the emergency room. He was found to be in rapid atrial fibrillation. The patient was seen in consultation by Dr. Montano who performed PIETRO-guided cardioversion. The patient's ejection fraction is estimated to be 60% to 65%. Right ventricle systolic function is normal. There was no evidence of thrombus in the left atrial cavity or appendage. There was trace mitral regurgitation and trace tricuspid regurgitation. There was no PFO. The patient was successfully cardioverted to normal sinus rhythm. A discussion was held between Dr. Montano, the patient, his long-term girlfriend , and his parents about anticoagulation to prevent stroke. At that time, decision was not made. On subsequent discussion between the patient and myself , we have decided to start the patient on Eliquis 5 mg p.o. b.i.d. He will remain on the Eliquis for the next 1 month. The patient is going to be discharged home today. He is to follow up with Laci White in the next [address] to [address] Solomon in the next 1 to 2 weeks. FOLLOWUP CONCERNS: The patient is being discharged home today, 11/04/19. Activity level is as tolerated. Diet is regular. Condition on discharge is stable. TIME SPENT: Twenty five minutes was spent on the discharge of this patient. [id number]/[facility] #: [id number] [facility]
== END 2019-11-04 19:05 ==
LOC: ED 07:32 → MEDTELE 10:26
PROVIDERS: ADMIT Hospitalist; ATTEND Hospitalist
DX: I48.20 Chronic atrial fibrillation, unspecified (principal); J45.909 Unspecified asthma, uncomplicated; Z79.01 Long term (current) use of anticoagulants; R42 Dizziness and giddiness; E03.9 Hypothyroidism, unspecified
CPT/HCPCS: 36415; 71045; 80053; 81003; 82550; 83735; 83880; 84443; 84484; 85025; 92960; 93005; 93312; 93325; 96360; 99156; 99157; 99284; A9270-GY; G0378; J2250; J2310; J3010